=== PATIENT | female | born 1990 | race African-American/Black ===

== ENCOUNTER 2017-12-08 18:35 | Emergency (ER) | payer MEDICAID ==
[~2017-12-08] VITALS: Ht 165.1 cm; Wt 76.0 kg
[~2017-12-08 18:35] MED LIST: HYDR-523 PO; IBUP-2028 PO; OMEP20TA15 PO; ONDA4TAB21 PO
[2017-12-08 21:46] LABS: CLARITY URINE CLEAR (CLEAR); COLOR URINE YELLOW (YELLOW); KETONES URINE NEGATIVE (NEGATIVE); LEUKOCYTE ESTERASE URINE NEGATIVE (NEGATIVE); NITRITE URINE NEGATIVE (NEGATIVE); OCCULT BLOOD URINE NEGATIVE (NEGATIVE); PH URINE 7.5 (4.5-8.0); PROTEIN URINE NEGATIVE (NEGATIVE); SPECIFIC GRAVITY URINE 1.015 (1.005-1.030)
[2017-12-08 23:43] LABS: BASOPHILS % 0.3 % (0.0-2.0); HEMATOCRIT. 36.8 % (36.0-48.0); HEMOGLOBIN. 12.5 g/dL (12.0-16.0); LYMPHOCYTES % 30.7 % (20.0-50.0); MEAN CORPUSCULAR HEMOGLOBIN 32.5 pg (28.0-32.0); MEAN CORPUSCULAR VOLUME 95.2 fL (81.0-99.0); MONOCYTES % 8.5 % (2.0-8.0); NEUTROPHILS % 56.5 % (40.0-76.0); PLATELET 192 x1000/uL (130-400); RED BLOOD CELL COUNT 3.86 mill/uL (4.2-5.4)
[2017-12-08 23:53] LABS: CHLORIDE 105 mEq/L (98-107)
[2017-12-08 23:54] LABS: INR 0.9; PROTHROMBIN TIME 9.8 sec (9.4-11.6)
[2017-12-09] MEDS ORDERED: KETOROLAC 30MG/ML VIAL IM ONE
[2017-12-09] MEDS ORDERED: ONDANSETRON HCL 4MG/2ML VIAL IV ONE (01:30)
[2017-12-09] MEDS ORDERED: MORPHINE SULFATE 4 MG/ML CPJ (NOT FOR IM USE) IV ONE (01:30)
[2017-12-09 04:47] VITALS: BP 124/61
== END 2017-12-09 05:28 | disposition home or self-care (01) ==
LOC: ER 18:35
DX: M54.9 Dorsalgia, unspecified (principal); R06.02 Shortness of breath; R11.10 Vomiting, unspecified; J45.909 Unspecified asthma, uncomplicated; F17.200 Nicotine dependence, unspecified, uncomplicated; F12.10 Cannabis abuse, uncomplicated; Z90.49 Acquired absence of other specified parts of digestive tract
CPT/HCPCS: 36415; 71045; 74176; 80053; 81003; 81025; 83690; 85025; 85610; 96372; 96374; 96375; 99285; J1885; J2270; J2405; Z7610

== ENCOUNTER 2018-01-15 09:57 | Emergency (ER) | payer MEDICAID ==
[~2018-01-15] VITALS: Ht 167.6 cm; Wt 76.0 kg
[2018-01-15 10:08] VITALS: BP 105/58
== END 2018-01-15 12:21 | disposition home or self-care (01) ==
LOC: ER 10:59
DX: H10.32 Unspecified acute conjunctivitis, left eye (principal); J45.909 Unspecified asthma, uncomplicated; F12.10 Cannabis abuse, uncomplicated; Z90.49 Acquired absence of other specified parts of digestive tract
CPT/HCPCS: 99282; 99283

== ENCOUNTER 2018-06-29 08:54 | Emergency (ER) | payer MEDICAID | END 2018-06-29 10:35 | disposition left against medical advice (07) | LOC: ER 08:54 | DX: Z53.21 Procedure and treatment not carried out due to patient leaving prior to being seen by health care provider (principal) ==

== ENCOUNTER 2018-11-16 09:57 | Emergency (ER) | payer MEDICAID ==
[~2018-11-16] VITALS: Ht 167.6 cm; Wt 80.0 kg
[2018-11-16 11:21] LABS: CLARITY URINE CLEAR (CLEAR); COLOR URINE YELLOW (YELLOW); KETONES URINE NEGATIVE (NEGATIVE); LEUKOCYTE ESTERASE URINE TRACE (NEGATIVE); NITRITE URINE NEGATIVE (NEGATIVE); OCCULT BLOOD URINE NEGATIVE (NEGATIVE); PH URINE 6.5 (4.5-8.0); PROTEIN URINE NEGATIVE (NEGATIVE); SPECIFIC GRAVITY URINE 1.018 (1.005-1.030)
[2018-11-16 13:22] LABS: BASOPHILS % 0.2 % (0.0-2.0); EOSINOPHILS % 8.6 % (0.0-5.0); HEMOGLOBIN. 12.6 g/dL (12.0-16.0); LYMPHOCYTES % 27.4 % (20.0-50.0); MEAN CORPUSCULAR HEMOGLOBIN 32.2 pg (28.0-32.0); MEAN CORPUSCULAR VOLUME 94.4 fL (81.0-99.0); MEAN PLATELET VOLUME 7.9 fl (7.4-10.4); MONOCYTES % 9.2 % (2.0-8.0); NEUTROPHILS % 54.6 % (40.0-76.0); PLATELET 172 x1000/uL (130-400); RED BLOOD CELL COUNT 3.92 mill/uL (4.2-5.4); RED CELL DISTRIBUTION WIDTH 15.8 % (11.6-14.6)
[2018-11-16 13:27] LABS: CHLORIDE 105 mEq/L (98-107)
[2018-11-16 13:54] LABS: B-HCG QUANTITATIVE 38339 mIU/mL (<3)
[2018-11-16 14:19] VITALS: BP 101/53
[2018-11-21 04:11] LABS: CHLAMYDIA TRACHOMATIS NAA Negative (Negative); NEISSERIA GONORRHOEAE NAA Negative (Negative)
== END 2018-11-16 14:23 | disposition home or self-care (01) ==
LOC: ER 09:57
DX: O26.891 Other specified pregnancy related conditions, first trimester (principal); R10.30 Lower abdominal pain, unspecified; J45.909 Unspecified asthma, uncomplicated; Z3A.12 12 weeks gestation of pregnancy; Z90.49 Acquired absence of other specified parts of digestive tract
CPT/HCPCS: 36415; 76801; 81025; 84702; 86850; 86900; 87210; 87491; 87591; 99284

== ENCOUNTER 2019-05-11 23:38 | Observation (INO) | payer MEDICAID | END 2019-05-12 02:15 | disposition home or self-care (01) | LOC: 8 EST LDRP 23:38 | PROVIDERS: ADMIT Obstetrics & Gynecology; ATTEND Obstetrics & Gynecology | DX: O62.9 Abnormality of forces of labor, unspecified (principal); Z3A.37 37 weeks gestation of pregnancy | CPT/HCPCS: 99281; G0378 ==